=== PATIENT | male | born 1965 | race Caucasian/White ===

== ENCOUNTER 2017-05-14 10:06 | Emergency (ER) | payer BC ==
[2017-05-14 10:11] VITALS: BP 155/85; PULSE 53; TEMP 98.3; BMI 37.6
--- NOTE | 2017-05-14 11:51 | PDOC ---
History of Present Illness - General Chief Complaint: Injury Stated Complaint: ARM PAIN Time Seen by Provider: 05/14/17 11:31 History Source: Patient Exam Limitations: No Limitations - History of Present Illness Initial Comments: 05/14/17 11:47 CHIEF COMPLAINT: Left wrist injury HISTORY OF PRESENT ILLNESS: Patient is a 52-year-old male history of cardiac stents, hypertension and high cholesterol presents for evaluation of left wrist injury states that he tripped and fell on Wednesday, fell onto left wrist developed swelling to area however was able to move wrist without difficulty still with swelling now Patient unable to carry bags and decreased range of motion to left wrist. There is no deformity. No neurosensory deficits. Denies any other injury. MEDS: See medication list ALLERGIES: None REVIEW OF SYSTEMS: GENERAL/CONSTITUTIONAL: Awake alert and oriented HEAD, EYES, EARS, NOSE AND THROAT: No change in vision. No facial edema, no bruising. NO active bleeding. Nares intact. RESPIRATORY: No cough, wheezing, or hemoptysis. CARDIAC: Denies chest pain, no shortness of breathe. MUSCULOSKELETAL: No spinal point tenderness, Good ROM to all four extremities, with pain to left wrist , pain to ulna. NO CVA tenderness. GI/: Denies abdominal pain, no nausea or vomiting, no bloody stool, no Hematuria. SKIN : No erythema or bruising noted. No abrasion or lacerations. Swelling ot the left lateral wrist. NEUROLOGIC: No loss of consciousness, no numbness or tingling. PHYSICAL EXAM: GENERAL: Awake and alert and oriented x3. EARS: The ear canals and tympanic membranes are normal without trauma. No drainage. NECK: No Lower cervical C-spine tenderness, no pain with chin to chest. CHEST: The lungs are clear without crackles, or wheezes. No subcutaneous emphysema. No crepitus. HEART: Heart is regular rhythm, with normal S1 and S2, no murmurs. ABDOMEN: The abdomen is soft and nontender with normal bowel sounds. There is no guarding or rebound. MUSCULOSKELETAL: No spinal point tenderness. No bruising or erythema. Pelvis stable. Equal bilateral grasp pain with range of motion to left wrist EXTREMITIES: Swelling and pain to left lateral wrist, no deformity SKIN: Edema to left lateral wrist no erythema or bruising. No abrasions or lacerations. Past History - Past Medical History Allergies/Adverse Reactions: Allergies Allergy/AdvReac Type Severity Reaction Status Date / Time No Known Allergies Allergy Verified 05/14/17 10:11 Home Medications: Ambulatory Orders Aspirin Coated [Ecotrin -] 81 mg PO DAILY 06/18/12 Losartan 50Mg/Hctz 12.5MG [Hyzaar -] 1 tab PO DAILY 06/18/12 Metoprolol Succinate [Toprol XL -] 50 mg PO DAILY 06/18/12 Prasugrel HCl [Effient] 5 mg PO DAILY 07/26/15 Ranolazine [Ranexa -] 500 mg PO BID #60 tab 08/01/15 Rosuvastatin [Crestor -] 20 mg PO HS #30 tablet 08/01/15 Anemia: No Asthma: No Cancer: No Cardiac Disorders: Yes (CORONARY ARTERIOSCLEROSIS,HEART ATTACK) CVA: No COPD: No Diabetes: No HTN: Yes Hypercholesterolemia: Yes Suicide Attempt (Hx): No - Surgical History Cardiac Surgery: Yes (CARDIAC STENT X2.) Orthopedic Surgery: No (BACK SURGERY) - Psycho/Social/Smoking Cessation Hx Suicidal Ideation: No Smoking Status: No Smoking History: Former smoker Have you smoked in the past 12 months: No Number of Cigarettes Smoked Daily: 0 If you are a former smoker, when did you quit?: 23 YEARS AGO Information on smoking cessation initiated: No Hx Alcohol Use: No Drug/Substance Use Hx: No Substance Use Type: None Hx Substance Use Treatment: No *Physical Exam - Vital Signs Last Vital Signs Temp Pulse Resp BP Pulse Ox 98.3 F 53 L 18 155/85 97 05/14/17 10:08 05/14/17 10:08 05/14/17 10:08 05/14/17 10:08 05/14/17 10:08 ED Treatment Course - RADIOLOGY Radiology Studies Ordered: Category Date Time Status FOREARM- LEFT [RAD] Stat Radiology 05/14/17 11:36 Ordered WRIST W/HAND-LEFT* [RAD] Stat Radiology 05/14/17 11:36 Ordered Medical Decision Making - Medical Decision Making 05/14/17 11:51 A/P: Patient with pain and injury to left wrist sent for x-ray to rule out acute fracture, patient is refusing pain medication at this time. 05/14/17 17:15 X-ray demonstrated posttraumatic changes to distal ulnar, no acute fracture or dislocation based upon pain level Will apply splint, post-splinting neurological checks performed, there is good cap refill, +2 peripheral pulses. Patient states pain is better with immobilization because of level of pain patient will follow-up with orthopedics I discussed the physical exam findings, ancillary test results and final diagnoses with the patient. I answered all of the patient's questions. The patient was satisfied with the care received and felt comfortable with the discharge plan and treatment plan. The patient will call to arrange follow-up and will return to the Emergency Department with any new, persistent or worsening symptoms. 05/14/17 17:19 *DC/Admit/Observation/Transfer Diagnosis at time of Disposition: Wrist injury Qualifiers: Encounter type: initial encounter Laterality: left Qualified Code(s): S69.92XA - Unspecified injury of left wrist, hand and finger(s), initial encounter - Discharge Dispostion Disposition: HOME Condition at time of disposition: Good Admit: No - Referrals Referrals: Matt Tanner MD [Primary Care Provider] - Dru Gay MD [Staff Physician] - - Patient Instructions Additional Instructions: 1. Please return to the emergency department with any redness, swelling, increased pain, or any other concerns. 2. Keep splint on, until official reading call [phone] later this afternoon asked for Jania for official reading of wrist x-ray 3. Please follow up in the office of Dr. Gay within a week if pain persists. 4. No weightbearing 5. Ice and elevate when at rest. - Post Discharge Activity Work/School Note: Back to Work
== END 2017-05-14 13:48 | disposition home or self-care (01) ==
LOC: JERFT 10:06
PROC: 2W3DX1Z Immobilization of Left Lower Arm using Splint (ICD-10-PCS; principal; 2017-05-14)
DX: S69.82XA Other specified injuries of left wrist, hand and finger(s), initial encounter (principal); W19.XXXA Unspecified fall, initial encounter; Y93.89 Activity, other specified; Y92.89 Other specified places as the place of occurrence of the external cause; I25.10 Atherosclerotic heart disease of native coronary artery without angina pectoris; I10 Essential (primary) hypertension; Z95.5 Presence of coronary angioplasty implant and graft; E78.00 Pure hypercholesterolemia, unspecified
CPT/HCPCS: 73090-TC-LT; 73110-TC-LT; 73130-TC-LT; 99281-25

== ENCOUNTER 2018-11-16 09:54 | Inpatient (IN) | payer BC, OTHER ==
--- NOTE | 2018-11-08 09:46 | HP ---
DATE OF ADMISSION: 11/16/2018 DATE OF DICTATION: 10/25/2018 HISTORY: A 53-year-old man admitted for bilateral component separation repair of a complex, chronically incarcerated, ventral hernia with mesh. Patient has had the hernia for quite some time. He did lose almost 30 pounds dieting this year, and the hernia may be more prevalent secondary to his weight loss. Nonetheless, he has had episodes of severe pain associated with the hernia in the supraumbilical midline. No underlying GI, , or respiratory complaints to suggest predisposition to hernia formation. PAST MEDICAL HISTORY: Significant for coronary artery disease and he is status post coronary artery stenting x4, the last stent placed approximately 5 years ago. He also suffers with hypertension and hypercholesterolemia. No history of diabetes , respiratory, renal, or hepatic insufficiency. PAST SURGICAL HISTORY: Significant for failed Lap-Band in the past, which was subsequently removed. He did sustain trauma approximately a year ago, which required urgent knee surgery for a quadriceps tendon avulsion in December 2017. He also does require lumbar fusion with hardware which is still not comp approved but pending. ALLERGIES: None known. REGULAR MEDICATIONS: Statins, losartan, Plavix, metoprolol, Ranexa, Ecotrin. SOCIAL HISTORY: Negative tobacco but did smoke remotely. Negative alcohol. Patient states he did drink remotely as well. FAMILY HISTORY: Mother history of heart disease. Siblings: One recently with brain neoplasia. REVIEW OF SYSTEMS: Otherwise nil. PHYSICAL EXAMINATION: General: Patient appears his stated age. Vital Signs: 268 pounds/5 feet 11 inches (BMI 37.4). Abdomen: Obese, soft, nontender. A chronically incarcerated, upper midline hernia identified amidst a large diastasis recti. IMPRESSION: Complex, chronically incarcerated ventral hernia. Large diastasis recti. PLAN: Patient to undergo bilateral component separation repair of complex, chronically incarcerated ventral hernia with mesh. Patient has been advised to lose as much weight preoperatively as possible. He will be giving that some consideration as he already has lost 30 pounds this year. Indications, alternatives, possible complications reviewed. Consent obtained. Issues that relate to placement of a permanent mesh at the time of surgery reviewed with patient. Those risks, which include, but are not limited to, infection, rejection, migration, and neuritides explained. Consent obtained. Patient to be seen preoperatively by his PMD and fashion intern. Please refer to those notes for those medical details. Violetta PRESCOTT/[id number] cc: Matt Tanner MD MTDD
[2018-11-15 14:54] VITALS: BMI 37.3
[2018-11-16] MEDS ORDERED: ceFAZolin SODIUM 1 GM VIAL ONE ×2 (10:38→13:58)
[2018-11-16] MEDS ORDERED: TAMSULOSIN HCL 0.4 MG CAP ONE (10:38)
[2018-11-16] MEDS ORDERED: TAMSULOSIN HCL 0.4 MG CAP PO ONE (10:50)
[2018-11-16] MEDS ORDERED: DEXAMETHASONE SOD PHOSPHATE/PF 10 MG/ML SDV ONE (11:48)
[2018-11-16] MEDS ORDERED: BUPIVACAINE HCL/PF 0.5% (5MG/ML) 10 ML VIAL ONE (11:49)
[2018-11-16] MEDS ORDERED: MIDAZOLAM HCL 2 MG/2 ML SINGLE DOSE VIAL ONE (11:50)
[2018-11-16] MEDS ORDERED: IBUPROFEN 800 MG/8 ML IJ IVPB PRN (13:40)
[2018-11-16] MEDS ORDERED: fentaNYL CITRATE 250 MCG/5 ML VIAL ONE (13:48)
[2018-11-16] MEDS ORDERED: SUCCINYLCHOLINE CHLORIDE 200 MG/10 ML VIAL ONE (13:48)
[2018-11-16] MEDS ORDERED: ROCURONIUM BROMIDE 50 MG/5 ML VIAL ONE ×2 (13:48→14:10)
[2018-11-16] MEDS ORDERED: PROPOFOL 20 ML ONE ×2 (13:48)
[2018-11-16] MEDS ORDERED: LIDOCAINE HCL/PF 2% SDV 5ML VIAL ONE (13:58)
[2018-11-16] MEDS ORDERED: ceFAZolin SODIUM 1 GM VIAL IVPB ONE (14:04)
[2018-11-16] MEDS ORDERED: ePHEDrine SULFATE 50 MG/1 ML AMPULE ONE (14:13)
[2018-11-16] MEDS ORDERED: NEOSTIGMINE METHYLSULFATE 0.5 MG/ML - 10 ML MDV ONE ×2 (15:05→15:17)
[2018-11-16] MEDS ORDERED: GLYCOPYRROLATE 0.2 MG/1 ML VIAL ONE ×2 (15:05→15:18)
[2018-11-16] MEDS ORDERED: ONDANSETRON 4 MG/2 ML VIAL IVPUSH PRN (15:49)
[2018-11-16] MEDS ORDERED: LACTATED RINGERS SOLUTION 1,000 ML IV SCH (16:00)
[2018-11-16] MEDS: D5-1/2NS+20 MEQ KCL - 20 MEQ/1,000 ML INFUS.BAG IV SCH ×2 (18:20→19:01)
[2018-11-16] MEDS: MORPHINE SULFATE 8 MG/ML VIAL IVPB PRN (19:00)
[2018-11-16] MEDS: HYDROCHLOROTHIAZIDE 12.5 MG CAPSULE (FP) PO SCH (19:00)
[2018-11-16] MEDS: LOSARTAN POTASSIUM 50 MG TABLET (FP) PO SCH (19:00)
[2018-11-16] MEDS ORDERED: ROSUVASTATIN CA 10 MG TABLET (FP) ONE (21:24)
[2018-11-16] MEDS ORDERED: LOSARTAN 50MG/HCTZ 12.5MG 1 TAB (FP) PO SCH (22:00)
[2018-11-16] MEDS: RANOLAZINE E.R. 500 MG TABLET (FP) PO SCH (22:03)
[2018-11-16] MEDS: oxyCODONE HCL 5 MG TABLET PO PRN (22:04)
[2018-11-16] MEDS: ROSUVASTATIN CA 20 MG TABLET (FP) PO SCH (22:04)
[2018-11-17] MEDS: MORPHINE SULFATE 8 MG/ML VIAL IVPB PRN (02:55)
[2018-11-17] MEDS: D5-1/2NS+20 MEQ KCL - 20 MEQ/1,000 ML INFUS.BAG IV SCH (04:45)
[2018-11-17] MEDS: HYDROCHLOROTHIAZIDE 12.5 MG CAPSULE (FP) PO SCH ×2 (06:21→18:04)
[2018-11-17] MEDS: LOSARTAN POTASSIUM 50 MG TABLET (FP) PO SCH ×2 (06:22→18:04)
--- NOTE | 2018-11-17 08:02 | OP ---
DATE OF OPERATION: 11/16/2018 PREOPERATIVE DIAGNOSIS: Incarcerated, complex ventral hernia. POSTOPERATIVE DIAGNOSIS: Incarcerated, complex ventral hernia. PROCEDURE: Open bilateral-component separation repair of complex, incarcerated ventral hernia with mesh/partial omentectomy. OPERATING SURGEON: Ciro Hernandez MD FORMAT PROOFREADER: Ochoa Garrison MD ANESTHESIA: Bacilio Christian MD (general) HISTORY: A 53-year-old man who presents for repair of a complex, chronically incarcerated ventral hernia involving the upper midline. Indications, alternatives, and possible complications reviewed. Consent obtained. DESCRIPTION OF PROCEDURE: With the patient in the supine position and after general anesthesia, the abdomen was prepped and draped in sterile fashion using chlorhexidine. A midline incision was made directly over the incarcerated hernia in the upper midline, and the incision was carried out inferiorly just beyond the umbilicus. The subcutaneous tissues were using the electrocautery. The obvious hernia was encountered in the upper midline including to the level of the fascial ring. Along the fascial midline, there were several other smaller hernia defects which contained incarcerated fat. Additionally, there was a defect at the base of the umbilicus , which could not be appreciated clinically. The larger hernia sac was opened. Portion of the sac and omentum were excised and sent as specimen. The midline was then divided from the level of the upper large defect, encompassing the 2 smaller defects in the midline, as well as the umbilicus. First, directing our attention the right side, the right posterior rectus sheath was from the overlying right rectus muscle fibers. The retrorectus space on the right side was developed using sharp cautery dissection, moving in the inferolateral and superior direction, ultimately arriving at the junction of the rectus with the oblique and transversus musculature. The oblique musculature was then from the underlying transversus musculature, creating a plane which was created as a continuous space of the right retrorectus dissection. Again, the dissection was carried out further inferiorly, laterally, and superiorly. Now directing our attention to the left side, the left posterior sheath was from the left rectus muscle fibers, creating the left retrorectus space. Again , this was carried out inferiorly, laterally, and superior to the level of the junction of the rectus with the oblique and transversus musculature. Again, the left oblique musculature was from the underlying left transversus muscle. The retrorectus space was extended into this interspace, and the dissection again was carried out further inferiorly, laterally, and superiorly. The posterior midline was then reconstructed, approximating the tissues in the midline using a continued 3-0 Maxon suture. Composite mesh was made at the table while using a piece of 15 x 15 ProGrip mesh which was sutured to a similar-size piece of OviTex mesh using interrupted 3-0 Vicryl sutures circumferentially. After the mesh was soaked, it was placed in the retrorectus space with the OviTex side down and the ProGrip side up. The mesh was fashioned to fill the space. It was then tacked to the overlying musculature circumferentially with an AbsorbaTack and counter-palpation. The wound was irrigated, and adequate hemostasis ensured. The anterior fascia was then closed using number 1 PDS suture material, beginning on each end of the wound with the suture tied at the level of the wound midpoint. The subcutaneous tissues were irrigated and irrigant retrieved. Adequate hemostasis ensured. The undersurface of the skin at the umbilicus was tacked to the underlying fascia to create the usual inward appearance of the umbilicus. Given the capacious subcutaneous space, a Rickie-Street drain was placed in the space and exited through a separate stab wound at the level of the left lower abdominal wall, where it was tacked to the skin with 2-0 silk suture material. The skin edges were ultimately approximated using metallic clips. Dermabond applied. Procedure terminated. Needle, sponge, and instrument count correct. ESTIMATED BLOOD LOSS: Minimal. SPECIMEN: Hernia sac and portion of omentum. DRAINS: One VIRI. IMPLANT: Mesh. Patient tolerated the procedure, and the procedure was terminated. Violetta [id number] MTDD
[2018-11-17] MEDS: RANOLAZINE E.R. 500 MG TABLET (FP) PO SCH ×2 (10:14→21:13)
[2018-11-17] MEDS: PANTOPRAZOLE SODIUM 40 MG VIAL IVPUSH SCH (10:14)
[2018-11-17] MEDS: ENOXAPARIN NA (PORCINE) 40 MG/0.4 ML DISP.SYRIN SQ SCH (10:14)
[2018-11-17] MEDS: ASPIRIN COATED 81 MG TABLET.EC PO SCH (10:14)
[2018-11-17] MEDS: amLODIPine BESYLATE 5 MG TABLET (FP) PO SCH (10:14)
[2018-11-17] MEDS: oxyCODONE HCL 5 MG TABLET PO PRN ×3 (12:31→22:30)
[2018-11-17] MEDS: TAMSULOSIN HCL 0.4 MG CAP PO SCH (18:03)
[2018-11-17] MEDS ORDERED: ROSUVASTATIN CA 10 MG TABLET (FP) ONE (21:06)
[2018-11-17] MEDS ORDERED: PT OWN MED DRAWER 7, Y5N ONE (21:15)
[2018-11-17] MEDS: ROSUVASTATIN CA 20 MG TABLET (FP) PO SCH (21:16)
[2018-11-18] MEDS: MORPHINE SULFATE 8 MG/ML VIAL IVPB PRN (05:03)
[2018-11-18] MEDS: HYDROCHLOROTHIAZIDE 12.5 MG CAPSULE (FP) PO SCH ×2 (06:19→17:56)
[2018-11-18] MEDS: LOSARTAN POTASSIUM 50 MG TABLET (FP) PO SCH ×2 (06:19→17:56)
[2018-11-18] MEDS: ENOXAPARIN NA (PORCINE) 40 MG/0.4 ML DISP.SYRIN SQ SCH (10:48)
[2018-11-18] MEDS: PANTOPRAZOLE SODIUM 40 MG VIAL IVPUSH SCH (10:55)
[2018-11-18] MEDS: TAMSULOSIN HCL 0.4 MG CAP PO SCH (10:55)
[2018-11-18] MEDS: amLODIPine BESYLATE 5 MG TABLET (FP) PO SCH (10:55)
[2018-11-18] MEDS: RANOLAZINE E.R. 500 MG TABLET (FP) PO SCH (10:55)
[2018-11-18] MEDS: ASPIRIN COATED 81 MG TABLET.EC PO SCH (10:55)
[2018-11-18 17:15] VITALS: BP 125/79; PULSE 58; TEMP 98.2
[2018-11-18] MEDS: D5-1/2NS+20 MEQ KCL - 20 MEQ/1,000 ML INFUS.BAG IV SCH (17:56)
--- NOTE | 2018-11-19 07:16 | DS ---
DATE OF ADMISSION: 11/16/2018 DATE OF DISCHARGE: 11/18/2018 ADMITTING DIAGNOSIS: Incisional hernia. DISCHARGE DIAGNOSIS: Incisional hernia. BRIEF HISTORY: This is a 53-year-old male who presented to [facility] for surgical management of an incisional hernia. He underwent repair of this hernia utilizing component separation, myofascial release, mesh and abdominal wall reconstruction. Please reference Dr. Ciro Hernandez's operative report from November 16. Postoperatively he developed urinary retention and postoperative pain. He required a Strauss catheter to be placed on the evening of November 17 which was removed the morning of November 18. He is currently ambulating. He is tolerating a liquid diet. He is passing gas. If he is able to void he is expected to be discharged with his Rickie-Street drain. He is okay to walk, okay to climb stairs, though not lift more than 20 pounds. He will empty his J-P drain daily and record the amount or sooner if needed. He will follow with Dr. Hernandez in approximately 1 to 2 weeks to be evaluated for drain removal. If the patient is unable to void then he will go home with a Strauss catheter and be evaluated as an outpatient by a urologist. He does state that he gets up multiple times at night normally to go to the bathroom and he likely has benign prostatic hypertrophy. He will resume all of his home medications including Norvasc, aspirin, Plavix, losartan, metoprolol, Ranexa and Crestor. He has a new prescription for Percocet which he will take as needed for pain. DO DERRICK BOLIVAR/[id number]
--- NOTE | 2018-11-20 08:48 | PATH ---
Surgical Pathology Report Patient Name: JACQUELINE OLMOS Med. Rec. #: [id number] /Age/Gender: 1965 (Age: 53) / M Account: [id number] Location: [facility] MED/SURG Taken: 11/16/2018 Received: 11/17/2018 Reported: 11/20/2018 Physicians: Ciro Hernandez M.D. Specimen(s) Received PORTION OF HERNIA SAC AND OMENTUM Clinical History Other and unspecified ventral hernia with obstruction Final Diagnosis PORTION OF HERNIA SAC AND OMENTUM, EXCISION: BENIGN FIBROUS AND MATURE ADIPOSE TISSUE. Electronically Signed Bhavesh Palacios M.D. Gross Description Received in formalin labeled "portion of hernia sac and omentum," is a 5.5 x 3.0 x 1.7 cm aggregate of multiple lua-lara portions of fibromembranous tissue with attached fat, consistent with a hernia sac. [employer]eting Supervisor sections are submitted in one cassette. 11/17/2018 [facility]/17/[facility]
== END 2018-11-18 20:15 | disposition home or self-care (01) | DRG 641 ==
LOC: JASUSAT 09:54 → JASU-SURG 09:54 → JSAMEDAYSX 13:38 → J8W 18:33
PROVIDERS: ADMIT Surgery; ATTEND Surgery
DX: E87.1 Hypo-osmolality and hyponatremia (principal); I25.10 Atherosclerotic heart disease of native coronary artery without angina pectoris; I25.2 Old myocardial infarction; I10 Essential (primary) hypertension; E78.5 Hyperlipidemia, unspecified; Z98.61 Coronary angioplasty status; R33.9 Retention of urine, unspecified; K59.00 Constipation, unspecified; E83.42 Hypomagnesemia; Z68.37 Body mass index [BMI] 37.0-37.9, adult; N99.89 Other postprocedural complications and disorders of genitourinary system; Y83.8 Other surgical procedures as the cause of abnormal reaction of the patient, or of later complication, without mention of misadventure at the time of the procedure; R33.8 Other retention of urine; E66.01 Morbid (severe) obesity due to excess calories; T50.2X5A Adverse effect of carbonic-anhydrase inhibitors, benzothiadiazides and other diuretics, initial encounter; I95.9 Hypotension, unspecified
CPT/HCPCS: 88302-TC

== ENCOUNTER 2018-11-19 05:59 | Inpatient (IN) | payer BC, OTHER ==
[2018-11-19] MEDS ORDERED: ASPIRIN 81 MG CHEWABLE TABLETS PO ONE (06:07)
[2018-11-19 06:56] LABS: BASO % 0.2 % (0-2.0); EOS % 1.3 % (0-4.5); HEMATOCRIT 39.3 % (35.4-49); HEMOGLOBIN 13.4 GM/dL (11.7-16.9); LYMPH % 11.8 % (8-40); MCH 29.6 pg (25.7-33.7); MCHC 34.1 g/dl (32.0-35.9); MEAN CELL VOLUME 86.7 fl (80-96); MEAN PLT VOLUME 7.4 fl (7.5-11.1); MONO % 9.6 % (3.8-10.2); NEUT % 77.1 % (42.8-82.8); PLATELET COUNT 240 K/MM3 (134-434); RBC 4.53 M/mm3 (4.00-5.60); RDW 13.2 % (11.9-15.9); WHITE BLOOD COUNT 11.2 K/mm3 (4.0-10.0)
--- NOTE | 2018-11-19 07:09 | PDOC ---
History of Present Illness - General Chief Complaint: Chest Pain Stated Complaint: CHEST PAIN History Source: Patient Exam Limitations: No Limitations - History of Present Illness Initial Comments: 11/19/18 11:26 53 yo M with hx of CAD s/p x4 stents (most recent 5 years ago; 2x SC 2004, 2009) , HTN, and HLD presents to the emergency department after recent discharge for repair of complex incarcerated ventral hernia yesterday with chest pain that awoke him from sleep at 3am today. Per the patient, he states the pain began in the center left chest wall, without radiation, described as pressure, rated at 8 /10, worsens with laying down, and has the following associative symptoms: SOB, nausea, and chills. Denies vomiting. Per the patient, it is currently a 6/10. Denies the following: fevers, visual changes, lightheadedness, ears/nose/throat pain, abdominal pain, dysuria, hematuria, diarrhea, and hematochezia. No recent travels, but has been on lovenox while at the hospital. Pmhx: Refer to above Shx: lap band Meds: plavix, statin, losartan, metoprolol, aspirin, ranexa Allergies: NKDA Social: Denies tobacco, alcohol, and substance abuse. Past History - Past Medical History Allergies/Adverse Reactions: Allergies Allergy/AdvReac Type Severity Reaction Status Date / Time No Known Allergies Allergy Verified 11/19/18 06:23 Home Medications: Ambulatory Orders Aspirin Coated [Ecotrin -] 162 mg PO DAILY 06/18/12 Losartan 50Mg/Hctz 12.5MG [Hyzaar -] 1 tab PO BID 06/18/12 Metoprolol Succinate [Toprol XL -] 50 mg PO BID 06/18/12 Ranolazine [Ranexa -] 500 mg PO BID #60 tab 08/01/15 Rosuvastatin [Crestor -] 20 mg PO HS #30 tablet 08/01/15 Clopidogrel Bisulfate [Plavix] 75 mg PO DAILY 11/15/18 Amlodipine Besylate [Norvasc -] 5 mg PO DAILY 11/16/18 Oxycodone HCl/Acetaminophen [Percocet 5-325 mg Tablet] 1 tab PO Q4H PRN #42 tablet MDD 6 11/16/18 Tamsulosin HCl [Flomax] 0.4 mg PO HS #7 cap.er.24h 11/18/18 Anemia: No Asthma: No Cancer: No Cardiac Disorders: Yes (CORONARY ARTERIOSCLEROSIS,HEART ATTACK) CVA: No COPD: No CHF: No (2009) Dementia: No Diabetes: No GI Disorders: No Disorders: No HTN: Yes Hypercholesterolemia: Yes Liver Disease: No Seizures: No Thyroid Disease: No - Surgical History Cardiac Surgery: Yes (CARDIAC STENT x4 2009) Neurologic Surgery: Yes (back sx) Orthopedic Surgery: No (BACK SURGERY knee sx) - Suicide/Smoking/Psychosocial Hx Smoking Status: No Smoking History: Never smoked Have you smoked in the past 12 months: No Number of Cigarettes Smoked Daily: 0 If you are a former smoker, when did you quit?: 25 YEARS AGO Information on smoking cessation initiated: No Hx Alcohol Use: No Drug/Substance Use Hx: No Substance Use Type: None Hx Substance Use Treatment: No *Physical Exam - Vital Signs Last Vital Signs Temp Pulse Resp BP Pulse Ox 98.5 F 62 18 142/87 93 L 11/19/18 06:17 11/19/18 06:17 11/19/18 06:17 11/19/18 06:17 11/19/18 06:17 Moderate Sedation - Procedure Monitoring Vital Signs: Procedure Monitoring Vital Signs Temperature 98.5 F 11/19/18 06:17 Pulse Rate 62 11/19/18 06:17 Respiratory Rate 18 11/19/18 06:17 Blood Pressure 142/87 11/19/18 06:17 O2 Sat by Pulse Oximetry (%) 93 L 11/19/18 06:17 Heart Score/ECG Review - History History: Moderately suspicious ED Treatment Course - LABORATORY CBC & Chemistry Diagram: 11/19/18 06:46 11/19/18 06:46 - ADDITIONAL ORDERS Additional order review: 11/19/18 06:46 RBC 4.53 MCV 86.7 MCHC 34.1 RDW 13.2 MPV 7.4 L Neutrophils % 77.1 D Lymphocytes % 11.8 D Monocytes % 9.6 Eosinophils % 1.3 Basophils % 0.2 *DC/Admit/Observation/Transfer - Referrals Referrals: Matt Tanner MD [Primary Care Provider] - - Patient Instructions - Post Discharge Activity
[2018-11-19 07:23] LABS: ALBUMIN 3.3 g/dl (3.4-5.0); ALK PHOS 69 U/L (45-117); ANION GAP 10 MMOL/L (8-16); BILIRUBIN,TOTAL 0.7 mg/dL (0.2-1); BLOOD UREA NITROGEN 12 mg/dL (7-18); CALCIUM 8.3 mg/dL (8.5-10.1); CHLORIDE 77 mmol/L (98-107); CO2 33 mmol/L (21-32); GLUCOSE,RANDOM 113 mg/dL (74-106); MAGNESIUM 1.6 mg/dL (1.8-2.4); POTASSIUM 3.7 mmol/L (3.5-5.1); SGOT/AST 25 U/L (15-37); SGPT/ALT 25 U/L (13-61); SODIUM 121 mmol/L (136-145); TOT PROT 5.9 g/dl (6.4-8.2)
[2018-11-19 07:25] LABS: INR 1.08 (0.83-1.09); PROTHROMBIN TIME (PATIENT) 12.8 SEC (9.7-13.0)
[2018-11-19] MEDS ORDERED: ASPIRIN 81 MG CHEWABLE TABLETS ONE (07:49)
[2018-11-19 07:54] LABS: CREATININE 0.7 mg/dL (0.55-1.3)
--- NOTE | 2018-11-19 08:15 | PDOC ---
Attending Attestation - Resident Resident Name: Donald Kirk - ED Attending Attestation I have performed the following: I have examined & evaluated the patient, The case was reviewed & discussed with the resident, I agree w/resident's findings & plan, Exceptions are as noted - HPI HPI: 11/19/18 08:16 53 M with h/o hypertension, hyperlipidemia, CAD/LA s/p multiple stents, recent ventral hernia repair POD 3, presenting to ED with chest pain. Pt states that he awoke at 3am with midsternal chest pressure and SOB. Pt also reports chills. Endorses dry heaves without vomiting. Denies any significant abdominal pain but notes some bloating. Has not had BM since surgery but states he is passing gas. Pt states the pain is similar to his previous MIs. Denies any leg swelling. Was receiving lovenox shots in hospital. Denies orthopnea. - Physicial Exam PE: 11/19/18 08:22 "GENERAL: Awake, alert, and fully oriented, in no acute distress. HEAD: No signs of trauma EYES: PERRLA, EOMI, sclera anicteric, conjunctiva clear ENT: Auricles normal inspection, hearing grossly normal, nares patent, oropharynx clear without exudates. Moist mucosa NECK: Nontender, no stepoffs, Normal ROM, supple, no lymphadenopathy, JVD, or masses LUNGS: Breath sounds equal, clear to auscultation bilaterally. No wheezes, and no crackles HEART: Regular rate and rhythm, normal S1 and S2, no murmurs, rubs or gallops ABDOMEN: + drain in place, Soft, nontender, normoactive bowel sounds. No guarding, no rebound. No masses EXTREMITIES: Normal range of motion, no edema. No clubbing or cyanosis. No cords, erythema, or tenderness NEUROLOGICAL: Cranial nerves II through XII intact. 5/5 strength and sensation in all extremities, Normal speech, normal gait, normal cerebellar function SKIN: Warm, Dry, normal turgor, no rashes or lesions noted. - Medical Decision Making 11/19/18 08:24 53 M with chest pain and SOB. EKG with no ischemic changes but will need ACS r/ o given h/o LA. Pt also recently post-op, will need to r/o PNA vs PE. Pt with no abdominal pain but reports mild distention and dry heaving. Otherwise passing flatus. - Labs, trop - CTA chest - XR abd to r/o obstruction Pt's labs notable for Na 121. Pt endorses drinking "a lot of water" leading up to surgery and in the few days since his operation in an attempt to "clean out his system". Denies POP, confusion. Pt with no neuro deficits. No h/o seizures. CTA chest negative XR unremarkable Pt admitted for further work up of CP/SOB.
[2018-11-19 10:42] LABS: URINE APPEARANCE CLEAR; URINE BILIRUBIN NEGATIVE (<2.0 mg/dL); URINE COLOR LTYELLOW; URINE GLUCOSE (UA) NEGATIVE (NEGATIVE); URINE KETONE TRACE (NEGATIVE); URINE LEUK ESTERASE TRACE (NEGATIVE); URINE NITRITE NEGATIVE (NEGATIVE); URINE PROTEIN NEGATIVE (NEGATIVE); URINE UROBILINOGEN NEGATIVE mg/dL (0.2-1.0)
[2018-11-19] MEDS ORDERED: ACETAMINOPHEN 1000 MG/100 ML VIAL (NON FORMULARY) IVPB ONE (13:38)
--- NOTE | 2018-11-19 13:53 | HP ---
CHIEF COMPLAINT: dyspnea PCP: Dr. Tanner Cardio: Dr. Stein Surgery: Dr. Hernandez, Dr. Montes HISTORY OF PRESENT ILLNESS: 53 yr old man with HTN, CAD s/p PCI, hx of lap band, POD#3 s/p ventral hernia repair presents with dyspnea and chest pressure since 3am today. Pt was discharged yesterday afternoon. The chest pressure is not painful and improves when leaning forward. the shortness of breath was sudden and associated with chest pressure, felt like "he couldn't catch his breath," worse when trying to walk, without any difficulty laying flat. says he had no complications while admitted, was ambulating and eating well during hospital stay. c/o continuous belching and 1 episode of chills last night. He normally drinks 3 glasses of water per day and has not increased that amount his operation. he has been on a liquid diet. recently started on norvasc 5mg on Wednesday by cardio. denies cough, calf edema or tenderness, fevers, abdominal pain, headache, vision changes, mental status changes, vomiting. He was discharged with pedraza and a pigtail in place. He has not had a bm post- operatively but has been passing gas, was on narcotics for pain relief and attributes it to SE. as per dc summary pt underwent repair of an incisonal hernia utilizing component separation, myofascial release, mesh, and abdominal wall reconstruction. He developed urinary retention requiring pedraza placement. He was discharged with his [place] drain and is to follow in 1-2wks to be evaluated for drain removal. all home medications were restarted. 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 Smoking: former, quit 20yrs ago Alcohol: denies Drugs: denies Family History: sister with brain cancer dx'd age 59, HTN in mother and father Allergies No Known Allergies Allergy (Verified 11/19/18 06:23) HOME MEDICATIONS: Home Medications Medication Instructions Recorded Aspirin Coated [Ecotrin -] 162 mg PO DAILY 06/18/12 Losartan 50Mg/Hctz 12.5MG [Hyzaar 1 tab PO BID 06/18/12 -] Metoprolol Succinate [Toprol XL -] 50 mg PO BID 06/18/12 Ranolazine [Ranexa -] 500 mg PO BID #60 tab 08/01/15 Rosuvastatin [Crestor -] 20 mg PO HS #30 tablet 08/01/15 Clopidogrel Bisulfate [Plavix] 75 mg PO DAILY 11/15/18 Amlodipine Besylate [Norvasc -] 5 mg PO DAILY 11/16/18 confirmed medications with pharmacy: metformin 500mg ER BID last fill 07/23/2018 for 30 days, flomax 0.4mg daily for 7 days not currently on it, rx'd yesterday dr. cary percocet 5/325 1 q4hr, nov 16 dr. iglesias norvasc 5mg daily started 11/12/2018 losartan with HCTZ 50/12.5 qd daily plavix 75mg daily crestor 20mg metoprolol succ 50mg BID daily ranexa 500mg BID REVIEW OF SYSTEMS CONSTITUTIONAL: Absent: fever, chills, diaphoresis, generalized weakness, malaise, loss of appetite, weight change HEENT: Absent: rhinorrhea, nasal congestion, throat pain, throat swelling, difficulty swallowing, mouth swelling, eye pain, visual changes CARDIOVASCULAR: Absent: chest pain, syncope, palpitations, irregular heart rate, lightheadedness , peripheral edema RESPIRATORY: Present:shortness of breath, Absent: cough, dyspnea with exertion, orthopnea, wheezing, stridor, hemoptysis GASTROINTESTINAL: Present: constipation Absent: abdominal pain, abdominal distension, nausea, vomiting, diarrhea, melena, hematochezia GENITOURINARY: Absent: dysuria, frequency, urgency, hesitancy, hematuria, flank pain, genital pain MUSCULOSKELETAL: Absent: myalgia, arthralgia, joint swelling, back pain, neck pain SKIN: Absent: rash, itching, pallor HEMATOLOGIC/IMMUNOLOGIC: Absent: easy bleeding, easy bruising, lymphadenopathy, frequent infections ENDOCRINE: Absent: unexplained weight gain, unexplained weight loss, heat intolerance, cold intolerance NEUROLOGIC: Absent: headache, focal weakness or paresthesias, dizziness, unsteady gait, seizure, mental status changes, bladder or bowel incontinence PHYSICAL EXAMINATION Vital Signs - 24 hr 11/19/18 11/19/18 11/19/18 06:17 10:30 13:47 Temperature 98.5 F Pulse Rate 62 Pulse Rate [ 63 59 L Radial] Respiratory 18 18 17 Rate Blood Pressure 142/87 Blood Pressure 128/69 124/89 [Right Arm] O2 Sat by Pulse 93 L 98 100 Oximetry (%) GENERAL: Awake, alert, and fully oriented, in no acute distress. HEAD: Normal with no signs of trauma. EYES: Pupils equal, round and reactive to light, extraocular movements intact, sclera anicteric, conjunctiva clear. No lid lag. EARS, NOSE, THROAT: Ears normal, nares patent, oropharynx clear without exudates. Moist mucous membranes. no sinus tenderness. NECK: Normal range of motion, supple without lymphadenopathy, JVD, or masses. no carotid bruits LUNGS: Breath sounds equal, clear to auscultation bilaterally. No wheezes, and no crackles. No accessory muscle use. HEART: Regular rate and rhythm, normal S1 and S2 without murmur, rub or gallop. ABDOMEN: Soft, nontender, obese, +distended, normoactive bowel sounds, no guarding, no rebound, no masses. periumbilical claire without erythema, discharge or tenderness. VIRI drain in LLQ skin intact without erythema or discharge, draining sangious fluid. purpura in RLQ from AC shots MUSCULOSKELETAL: Normal range of motion at all joints. No bony deformities or tenderness. No CVA tenderness. UPPER EXTREMITIES: 2+ radial pulses, warm, well-perfused. No cyanosis. No clubbing. No peripheral edema. LOWER EXTREMITIES: 2+ pulses, warm, well-perfused. No calf tenderness. No peripheral edema. NEUROLOGICAL: Cranial nerves II-XII intact. Normal speech. Normal gait. PSYCHIATRIC: Cooperative. Good eye contact. Appropriate mood and affect. SKIN: Warm, dry, normal turgor, no rashes or lesions noted, normal capillary refill. Laboratory Results - last 24 hr 11/19/18 11/19/18 11/19/18 06:46 06:46 06:46 WBC 11.2 H RBC 4.53 Hgb 13.4 Hct 39.3 MCV 86.7 MCH 29.6 MCHC 34.1 RDW 13.2 Plt Count 240 D MPV 7.4 L Absolute Neuts (auto) 8.6 H Neutrophils % 77.1 D Lymphocytes % 11.8 D Monocytes % 9.6 Eosinophils % 1.3 Basophils % 0.2 Nucleated RBC % 0 PT with INR 12.80 INR 1.08 Sodium 121 L Potassium 3.7 Chloride 77 L Carbon Dioxide 33 H Anion Gap 10 BUN 12 Creatinine 0.7 Creat Clearance w eGFR > 60 Random Glucose 113 H Calcium 8.3 L Magnesium 1.6 L Total Bilirubin 0.7 AST 25 ALT 25 Alkaline Phosphatase 69 Creatine Kinase 216 Creatine Kinase Index 2.2 CK-MB (CK-2) 4.9 H Troponin I 0.03 B-Natriuretic Peptide 419.0 H Total Protein 5.9 L Albumin 3.3 L Urine Color Urine Appearance Urine pH Ur Specific [place] Urine Protein Urine Glucose (UA) Urine Ketones Urine Blood Urine Nitrite Urine Bilirubin Urine Urobilinogen Ur Leukocyte Esterase Urine WBC (Auto) Urine RBC (Auto) Ur Random Sodium Urine Creatinine 11/19/18 11/19/18 09:15 09:15 WBC RBC Hgb Hct MCV MCH MCHC RDW Plt Count MPV Absolute Neuts (auto) Neutrophils % Lymphocytes % Monocytes % Eosinophils % Basophils % Nucleated RBC % PT with INR INR Sodium Potassium Chloride Carbon Dioxide Anion Gap BUN Creatinine Creat Clearance w eGFR Random Glucose Calcium Magnesium Total Bilirubin AST ALT Alkaline Phosphatase Creatine Kinase Creatine Kinase Index CK-MB (CK-2) Troponin I B-Natriuretic Peptide Total Protein Albumin Urine Color Ltyellow Urine Appearance Clear Urine pH 7.0 Ur Specific [place] 1.049 H Urine Protein Negative Urine Glucose (UA) Negative Urine Ketones Trace H Urine Blood 3+ H Urine Nitrite Negative Urine Bilirubin Negative Urine Urobilinogen Negative Ur Leukocyte Esterase Trace Urine WBC (Auto) 4 Urine RBC (Auto) 440 Ur Random Sodium 106 Urine Creatinine 66.0 H ASSESSMENT/PLAN: 53 yr old man with HTN, CAD, POD#3 of ventral hernia repair presents with dyspnea found to have hyponatermia #hyponatremia - hypotonic hyponatremia with normal urine sodium and normal urine osm in euvolemic appearing patient. possibly due to increased fluid intake since post-op vs diuretic SE. will hold losartan/hctz, fluid restrict and repeat labs. possibly this could be causing his dyspnea, EKG without ischemic changes, will trend trops to r/o cardiac cause, CTA unrevealing for PE. - check AM cortisol level to r/o SIADH, check TSH in the am to evaluate for hypothyroidism - if it continues to trend down will require further investigation - currently pt is alert/oriented without neurological deficits, defer 3% saline for now #Urine retention with pedraza - leave pedraza for now to monitor fluid output closely - if hyponetremia improved, may remove pedraza to check for retention or as previously DC planned to initiate flomax and outpatient urology f/u #HTN - continue norvasc 5mg and metorprol suc 50mg BID - hold hyzaar #POD3 for ventral hernia repair - monitor VIRI drainage - has not required pain medications so far, if requests, he was on percocet 5mg/ 325 #constipation - colace + senna daily #Hypomag - repleted with 1gm IV #obesity - pt s/p lap band, and actively has been attempting to lose weight - continue diet and exercise counseling #DVT: heparin BID #Diet: fluid restrict 1L/day, regular diet as tolerated #activity, as tolerated FULL CODE declined HIV testing Visit type - Emergency Visit Emergency Visit: Yes ED Registration Date: 11/19/18 Care time: The patient presented to the Emergency Department on the above date and was hospitalized for further evaluation of their emergent condition. - New Patient This patient is new to me today: Yes Date on this admission: 11/19/18 - Critical Care Critical Care patient: No
[2018-11-19] MEDS ORDERED: MAGNESIUM SULF 50% (8.12 MEQ/2 ML-1 GM VIAL) IVPB ONE (14:00)
[2018-11-19] MEDS ORDERED: ACETAMINOPHEN INJECTION 100 ML IVPB ONE (14:29)
[2018-11-19] MEDS ORDERED: MAGNESIUM SULF 50% (8.12 MEQ/2 ML-1 GM VIAL) ONE (14:29)
--- NOTE | 2018-11-19 15:44 | EKG ---
Test Reason : Blood Pressure : / mmHG Vent. Rate : 060 BPM Atrial Rate : 060 BPM P-R Int : 154 ms QRS Dur : 098 ms QT Int : 448 ms P-R-T Axes : 030 057 043 degrees QTc Int : 448 ms NORMAL SINUS RHYTHM NORMAL ECG WHEN COMPARED WITH ECG OF 30-JUL-2015 19:35, NONSPECIFIC T WAVE ABNORMALITY NO LONGER EVIDENT IN INFERIOR LEADS NONSPECIFIC T WAVE ABNORMALITY NO LONGER EVIDENT IN LATERAL LEADS Confirmed by CRISTIANE GARCIA MD ([id number]) on 11/19/2018 3:44:05 PM Referred By: Confirmed By:CRISTIANE GARCIA MD
--- NOTE | 2018-11-19 17:43 | PN ---
Teaching Attending Note Name of Resident: Will De Dios ATTENDING PHYSICIAN STATEMENT I saw and evaluated the patient. I reviewed the resident's note and discussed the case with the resident. I agree with the resident's findings and plan as documented. SUBJECTIVE: This is a 53 year old man with a history of HTN, CAD with stents, morbid obesity, lap band, recent repair of incarcerated complex ventral hernia 11/16 who comes to the ED complaining of chest pressure and SOB. He was discharged yesterday. This morning at 3 am he developed chest pressure and SOB which was worse with ambulation and better when leaning forward and lying in bed. He denies leg swelling, calf pain. He reports drinking a lot of water prior to and after surgery. OBJECTIVE: Vital Signs Period Temp Pulse Resp BP Sys/Giron Pulse Ox Last 24 Hr 98.5 F 59-63 17-18 124-142/69-89 93-100 HEART: S1S2, RRR LUNGS: Clear ABDOMEN: Obese, soft, non-tender, (+) distended, normal BS, incision clean, VIRI in place draining bloody fluid EXTREMITIES: No edema, no calf tenderness Laboratory Tests 11/19/18 11/19/18 11/19/18 06:46 06:46 06:46 WBC 11.2 H RBC 4.53 Hgb 13.4 Hct 39.3 MCV 86.7 MCH 29.6 MCHC 34.1 RDW 13.2 Plt Count 240 D MPV 7.4 L Absolute Neuts (auto) 8.6 H Neutrophils % 77.1 D Lymphocytes % 11.8 D Monocytes % 9.6 Eosinophils % 1.3 Basophils % 0.2 Nucleated RBC % 0 PT with INR 12.80 INR 1.08 Sodium 121 L Potassium 3.7 Chloride 77 L Carbon Dioxide 33 H Anion Gap 10 BUN 12 Creatinine 0.7 Creat Clearance w eGFR > 60 Random Glucose 113 H Serum Osmolality Calcium 8.3 L Magnesium 1.6 L Total Bilirubin 0.7 AST 25 ALT 25 Alkaline Phosphatase 69 Creatine Kinase 216 Creatine Kinase Index 2.2 CK-MB (CK-2) 4.9 H Troponin I 0.03 B-Natriuretic Peptide 419.0 H Total Protein 5.9 L Albumin 3.3 L Urine Color Urine Appearance Urine pH Ur Specific [place] Urine Protein Urine Glucose (UA) Urine Ketones Urine Blood Urine Nitrite Urine Bilirubin Urine Urobilinogen Ur Leukocyte Esterase Urine WBC (Auto) Urine RBC (Auto) Urine Osmolality Ur Random Sodium Urine Creatinine 11/19/18 11/19/18 11/19/18 09:15 09:15 14:10 WBC RBC Hgb Hct MCV MCH MCHC RDW Plt Count MPV Absolute Neuts (auto) Neutrophils % Lymphocytes % Monocytes % Eosinophils % Basophils % Nucleated RBC % PT with INR INR Sodium Potassium Chloride Carbon Dioxide Anion Gap BUN Creatinine Creat Clearance w eGFR Random Glucose Serum Osmolality Calcium Magnesium Total Bilirubin AST ALT Alkaline Phosphatase Creatine Kinase Creatine Kinase Index CK-MB (CK-2) Troponin I B-Natriuretic Peptide Total Protein Albumin Urine Color Ltyellow Urine Appearance Clear Urine pH 7.0 Ur Specific [place] 1.049 H Urine Protein Negative Urine Glucose (UA) Negative Urine Ketones Trace H Urine Blood 3+ H Urine Nitrite Negative Urine Bilirubin Negative Urine Urobilinogen Negative Ur Leukocyte Esterase Trace Urine WBC (Auto) 4 Urine RBC (Auto) 440 Urine Osmolality 724 Ur Random Sodium 106 Urine Creatinine 66.0 H 11/19/18 14:20 WBC RBC Hgb Hct MCV MCH MCHC RDW Plt Count MPV Absolute Neuts (auto) Neutrophils % Lymphocytes % Monocytes % Eosinophils % Basophils % Nucleated RBC % PT with INR INR Sodium Potassium Chloride Carbon Dioxide Anion Gap BUN Creatinine Creat Clearance w eGFR Random Glucose Serum Osmolality Cancelled Calcium Magnesium Total Bilirubin AST ALT Alkaline Phosphatase Creatine Kinase Creatine Kinase Index CK-MB (CK-2) Troponin I B-Natriuretic Peptide Total Protein Albumin Urine Color Urine Appearance Urine pH Ur Specific [place] Urine Protein Urine Glucose (UA) Urine Ketones Urine Blood Urine Nitrite Urine Bilirubin Urine Urobilinogen Ur Leukocyte Esterase Urine WBC (Auto) Urine RBC (Auto) Urine Osmolality Ur Random Sodium Urine Creatinine Home Medications Medication Instructions Recorded Aspirin Coated [Ecotrin -] 162 mg PO DAILY 06/18/12 Losartan 50Mg/Hctz 12.5MG [Hyzaar 1 tab PO BID 06/18/12 -] Metoprolol Succinate [Toprol XL -] 50 mg PO BID 06/18/12 Ranolazine [Ranexa -] 500 mg PO BID #60 tab 08/01/15 Rosuvastatin [Crestor -] 20 mg PO HS #30 tablet 08/01/15 Clopidogrel Bisulfate [Plavix] 75 mg PO DAILY 11/15/18 Amlodipine Besylate [Norvasc -] 5 mg PO DAILY 11/16/18 ASSESSMENT AND PLAN: This is a 53 year old man with a history of HTN, CAD with stents, morbid obesity , lap band, repair of incarcerated complex ventral hernia 11/16 who presented to the ED with chest pressure and SOB. 1. Chest pain, SOB - Monitor on telemetry - Serial troponins - No evidence of PE - Echocardiogram 2. Hyponatremia - Hypotonic, euvolemic - Likely secondary to HCTZ, increased water intake -Hold HCTZ - Fluid restriction - Check AM cortisol, TSH 3. Hypomagnesemia - Mag sulfate IV given 4. Urinary retention, post-op - Maintain Strauss catheter - Will plan voiding trial 5. HTN - Continue Norvasc, Toprol XL - Hold Hyzaar secondary to hyponatremia 6. CAD, history of stents - Continue aspirin, Plavix, Toprol XL, Crestor, Ranexa 7. Incarcerated complex ventral hernia - s/p repair 11/16 8. Morbid obesity with BMI 43.8 - History of lap band
[2018-11-19 18:39] LABS: ANION GAP 8 MMOL/L (8-16); BLOOD UREA NITROGEN 11 mg/dL (7-18); CALCIUM 8.4 mg/dL (8.5-10.1); CHLORIDE 79 mmol/L (98-107); CO2 33 mmol/L (21-32); CREATININE 0.7 mg/dL (0.55-1.3); GLUCOSE,RANDOM 114 mg/dL (74-106); POTASSIUM 3.7 mmol/L (3.5-5.1); SODIUM 120 mmol/L (136-145)
[2018-11-19 18:46] LABS: OSMOLALITY,SERUM 252 mosm/kg (278-305)
[2018-11-19] MEDS ORDERED: HEPARIN NA (PORCINE) 5,000 UNITS/ML 1ML VIAL ONE (22:49)
[2018-11-19] MEDS: ROSUVASTATIN CA 20 MG TABLET (FP) PO SCH (22:53)
[2018-11-19] MEDS: HEPARIN NA (PORCINE) 5,000 UNITS/ML 1ML VIAL SQ SCH (22:53)
[2018-11-19] MEDS: RANOLAZINE E.R. 500 MG TABLET (FP) PO SCH (22:54)
[2018-11-19] MEDS: SENNOSIDES 8.6MG TABLET (FP) PO SCH (22:54)
[2018-11-20] MEDS ORDERED: ONDANSETRON 4 MG/2 ML VIAL IVPUSH ONE (01:01)
[2018-11-20] MEDS ORDERED: ONDANSETRON 4 MG/2 ML VIAL ONE (01:11)
[2018-11-20 06:48] LABS: ANION GAP 8 MMOL/L (8-16); BLOOD UREA NITROGEN 11 mg/dL (7-18); CALCIUM 8.1 mg/dL (8.5-10.1); CHLORIDE 82 mmol/L (98-107); CO2 33 mmol/L (21-32); CREATININE 0.6 mg/dL (0.55-1.3); GLUCOSE,RANDOM 105 mg/dL (74-106); MAGNESIUM 1.8 mg/dL (1.8-2.4); PHOSPHOROUS 3.3 mg/dL (2.5-4.9); POTASSIUM 3.4 mmol/L (3.5-5.1); SODIUM 123 mmol/L (136-145)
[2018-11-20] MEDS ORDERED: POTASSIUM CHLORIDE TABS 20 MEQ TABLET.ER (FP) PO ONE ×3 (09:45→15:20)
--- NOTE | 2018-11-20 09:47 | PN ---
Physical Exam: SUBJECTIVE: Patient seen and examined in bed side this morning. States he feels much better. Minimal pain at the surgical site. Denies chest pain, sob, cough, palpitation, abdominal pain, nausea or vomiting. VIRI drain in place. Pedraza in place. BM today, no blood. This morning his BP was 108/60 mmHg, so his morning dose of antiHTN was not given. OBJECTIVE: Vital Signs Period Temp Pulse Resp BP Sys/Giron Pulse Ox Last 24 Hr 97.8 F-98 F 58-66 16-20 103-128/62-89 97-100 GENERAL: Morbidly obese male, lying in bed comfortably, is awake, alert, and fully oriented, in no acute distress. HEAD: Normal with no signs of trauma. EYES: EOM intact, no pallor or icterus. ENT: Ears normal, moist mucous membranes. NECK: Supple. LUNGS: B/L Breath sounds equal, clear to auscultation bilaterally, no wheezes, no crackles, no accessory muscle use. HEART: Regular rate and rhythm, S1, S2 without murmur. ABDOMEN: Ecchymosis, dressing over the surgical site, VIRI drain in place, Soft, tender to palpation around the surgical site, BS +. EXTREMITIES: 2+ pulses, warm, well-perfused, no edema. NEUROLOGICAL: No facial droop. Normal speech, gait not observed. PSYCH: Normal mood, normal affect. SKIN: Warm, dry, normal turgor, no rashes or lesions noted Laboratory Results - last 24 hr 11/19/18 11/19/18 11/19/18 09:15 09:15 14:10 Sodium Potassium Chloride Carbon Dioxide Anion Gap BUN Creatinine Creat Clearance w eGFR Random Glucose Serum Osmolality Calcium Phosphorus Magnesium Troponin I TSH Urine Color Ltyellow Urine Appearance Clear Urine pH 7.0 Ur Specific [place] 1.049 H Urine Protein Negative Urine Glucose (UA) Negative Urine Ketones Trace H Urine Blood 3+ H Urine Nitrite Negative Urine Bilirubin Negative Urine Urobilinogen Negative Ur Leukocyte Esterase Trace Urine WBC (Auto) 4 Urine RBC (Auto) 440 Urine Osmolality 724 Ur Random Sodium 106 Urine Creatinine 66.0 H 11/19/18 11/19/18 11/20/18 14:20 17:39 05:08 Sodium 120 L 123 L Potassium 3.7 3.4 L Chloride 79 L 82 L Carbon Dioxide 33 H 33 H Anion Gap 8 8 BUN 11 11 Creatinine 0.7 0.6 Creat Clearance w eGFR > 60 > 60 Random Glucose 114 H 105 Serum Osmolality Cancelled 252 L Calcium 8.4 L 8.1 L Phosphorus 3.3 Magnesium 1.8 Troponin I < 0.02 TSH 0.91 D Urine Color Urine Appearance Urine pH Ur Specific [place] Urine Protein Urine Glucose (UA) Urine Ketones Urine Blood Urine Nitrite Urine Bilirubin Urine Urobilinogen Ur Leukocyte Esterase Urine WBC (Auto) Urine RBC (Auto) Urine Osmolality Ur Random Sodium Urine Creatinine Active Medications Generic Name Dose Route Start Last Admin Trade Name Freq PRN Reason Stop Dose Admin Amlodipine Besylate 5 mg 11/20/18 10:00 Norvasc - PO DAILY [facility] Aspirin 162 mg 11/20/18 10:00 Ecotrin - PO DAILY [facility] Clopidogrel Bisulfate 75 mg 11/20/18 10:00 Plavix - PO DAILY [facility] Docusate Sodium 100 mg 11/20/18 10:00 Colace - PO DAILY [facility] Heparin Sodium (Porcine) 5,000 unit 11/19/18 22:00 11/19/18 22:53 Heparin - SQ 5,000 unit BID [facility]IS Administration Metoprolol Succinate 50 mg 11/19/18 22:00 11/19/18 22:54 Toprol Xl - PO 50 mg BID LUIS Administration Ranolazine 500 mg 11/19/18 22:00 11/19/18 22:54 Ranexa - PO 500 mg BID [facility] Administration Rosuvastatin Calcium 20 mg 11/19/18 22:00 11/19/18 22:53 Crestor - PO 20 mg HS LUIS Administration Senna 1 tab 11/19/18 22:00 11/19/18 22:54 Senna - PO 1 tab HS LUIS Administration ASSESSMENT/PLAN: Patient is a 53 year old morbidly obese male with PMHx of HTN, CAD s/p stents, POD#4 of ventral hernia repair presents with dyspnea found to have hyponatermia # Symptomatic Hypovolemic Hyponatremia likely secondary to medication (HCTZ) and increased water intake On admission, Na 121, now improved to 123 On water restriction, discontinued HCTZ. Unlikely hypothyroidism, TSH is normal. Continue fluid restriction. Symptoms has resolved Will repeat BMP now and monitor Cortisol AM pending. # Urinary retention-Pedraza in place Urinary output around 3000ml in 24 hrs. He was sent home on pedraza and the plan was to remove in a week at his doctors office Will continue pedraza for now # Hypertension with an episode of hypotension Morning dose of Amlodipine 5 mg and Metoprolol was held. If it improves, continue it. Also on Ranolazine 500mg BID. Discontinue HCTZ # Ventral hernia s/p repair POD [address]- around 20 ml drainage-serosanguinous # CAD s/p stents Continue Aspirin 162 mg and PLavix # Constipation Had a bowel movement. Continue Colace and Senna # Hypokalemia Repleted with PO K-dur # Morbid obesity s/p lap Continue diet and exercise # FEN NOt on IV fluids, can tolerate PO Electrolytes repleted. Regular diet, fluids restriction 1 L # Prophylaxis For DVT: On Heparin 5000 IU sq BID For GI: Not indicated # Code Status: Full Code # Dispo: Admitted in Med-Surg. D/c planning in AM if hyponatremia resolves. Illness, Investigation and Plan of care explained to the patient. He verbalized understanding. Case discussed with Dr. Kulkarni. Visit type - Emergency Visit Emergency Visit: Yes ED Registration Date: 11/19/18 Care time: The patient presented to the Emergency Department on the above date and was hospitalized for further evaluation of their emergent condition. - New Patient This patient is new to me today: Yes Date on this admission: 11/20/18 - Critical Care Critical Care patient: No - Discharge Referral Referred to [facility] Med [facility].C[facility] No
[2018-11-20] MEDS ORDERED: CLOPIDOGREL BISULFATE 75 MG TABLET (FP) PO SCH (10:00)
[2018-11-20] MEDS: ASPIRIN COATED 81 MG TABLET.EC PO SCH (11:30)
[2018-11-20] MEDS: HEPARIN NA (PORCINE) 5,000 UNITS/ML 1ML VIAL SQ SCH ×2 (11:30→22:39)
[2018-11-20] MEDS: DOCUSATE SODIUM 100 MG CAPSULE (FP) PO SCH (11:30)
[2018-11-20] MEDS: RANOLAZINE E.R. 500 MG TABLET (FP) PO SCH ×2 (11:30→22:38)
[2018-11-20] MEDS: CLOPIDOGREL BISULFATE 75 MG TABLET (FP) PO SCH (11:30)
[2018-11-20] MEDS: amLODIPine BESYLATE 5 MG TABLET (FP) PO SCH (13:10)
[2018-11-20 15:53] VITALS: BMI 37.6
[2018-11-20 17:08] LABS: ANION GAP 8 MMOL/L (8-16); BLOOD UREA NITROGEN 9 mg/dL (7-18); CHLORIDE 83 mmol/L (98-107); CO2 35 mmol/L (21-32); CREATININE 0.7 mg/dL (0.55-1.3); GLUCOSE,RANDOM 126 mg/dL (74-106); POTASSIUM 3.5 mmol/L (3.5-5.1); SODIUM 127 mmol/L (136-145)
--- NOTE | 2018-11-20 18:38 | PN ---
Teaching Attending Note Name of Resident: Annalee Aranda ATTENDING PHYSICIAN STATEMENT I saw and evaluated the patient. I reviewed the resident's note and discussed the case with the resident. I agree with the resident's findings and plan as documented. SUBJECTIVE: Patient has no complaints. OBJECTIVE: Vital Signs Period Temp Pulse Resp BP Sys/Giron Pulse Ox Last 24 Hr 97.8 F-98.2 F 58-70 16-20 103-129/58-81 95-99 HEART: S1S2, RRR LUNGS: Clear ABDOMEN: Obese, soft, non-tender, non-distended, normal BS EXTREMITIES: No edema Laboratory Results - last 24 hr 11/19/18 11/20/18 11/20/18 17:39 05:08 15:03 Sodium 120 L 123 L 127 L Potassium 3.7 3.4 L 3.5 Chloride 79 L 82 L 83 L Carbon Dioxide 33 H 33 H 35 H Anion Gap 8 8 8 BUN 11 11 9 Creatinine 0.7 0.6 0.7 Creat Clearance w eGFR > 60 > 60 > 60 Random Glucose 114 H 105 126 H Serum Osmolality 252 L Calcium 8.4 L 8.1 L 8.0 L Phosphorus 3.3 Magnesium 1.8 Troponin I < 0.02 TSH 0.91 D Current Medications Generic Name Dose Route Start Last Admin Trade Name Freq PRN Reason Stop Dose Admin Amlodipine Besylate 5 mg 11/20/18 10:00 11/20/18 13:10 Norvasc - PO Not Given DAILY LUIS Aspirin 162 mg 11/20/18 10:00 11/20/18 11:30 Ecotrin - PO 162 mg DAILY LUIS Administration Clopidogrel Bisulfate 75 mg 11/20/18 10:00 11/20/18 11:30 Plavix - PO 75 mg DAILY LUIS Administration Docusate Sodium 100 mg 11/20/18 10:00 11/20/18 11:30 Colace - PO 100 mg DAILY LIUS Administration Heparin Sodium (Porcine) 5,000 unit 11/19/18 22:00 11/20/18 11:30 Heparin - SQ 5,000 unit BID LUIS Administration Metoprolol Succinate 50 mg 11/19/18 22:00 11/20/18 11:30 Toprol Xl - PO 50 mg BID LUIS Administration Ranolazine 500 mg 11/19/18 22:00 11/20/18 11:30 Ranexa - PO 500 mg BID LUIS Administration Rosuvastatin Calcium 20 mg 11/19/18 22:00 11/19/18 22:53 Crestor - PO 20 mg HS LUIS Administration Senna 1 tab 11/19/18 22:00 11/19/18 22:54 Senna - PO 1 tab HS LUIS Administration ASSESSMENT AND PLAN: This is a 53 year old man with a history of HTN, CAD with stents, morbid obesity , lap band, repair of incarcerated complex ventral hernia 11/16 who presented to the ED with chest pressure and SOB. 1. Chest pain, SOB - Troponin negative x 2 - No evidence of PE - Echocardiogram 2. Hyponatremia - Hypotonic, euvolemic - Likely secondary to HCTZ, increased water intake -Improving - Continue to hold HCTZ - Continue fluid restriction - TSH normal - AM cortisol pending 3. Hypomagnesemia - Improved 4. Urinary retention, post-op - Maintain Strauss catheter 5. HTN - Continue Norvasc, Toprol XL - Hold Hyzaar secondary to hyponatremia 6. CAD, history of stents - Continue aspirin, Plavix, Toprol XL, Crestor, Ranexa 7. Incarcerated complex ventral hernia - s/p repair 11/16 8. Morbid obesity - History of lap band
[2018-11-20] MEDS: SENNOSIDES 8.6MG TABLET (FP) PO SCH (22:39)
[2018-11-20] MEDS: ROSUVASTATIN CA 20 MG TABLET (FP) PO SCH (22:39)
[2018-11-20] MEDS ORDERED: ACETAMINOPHEN 325 MG TABLET (FP) PO ONE (23:02)
[2018-11-21 08:03] LABS: ANION GAP 5 MMOL/L (8-16); BLOOD UREA NITROGEN 7 mg/dL (7-18); CALCIUM 8.3 mg/dL (8.5-10.1); CHLORIDE 93 mmol/L (98-107); CO2 35 mmol/L (21-32); CREATININE 0.7 mg/dL (0.55-1.3); GLUCOSE,RANDOM 112 mg/dL (74-106); POTASSIUM 3.6 mmol/L (3.5-5.1); SODIUM 133 mmol/L (136-145)
[2018-11-21] MEDS: amLODIPine BESYLATE 5 MG TABLET (FP) PO SCH (11:21)
[2018-11-21] MEDS: CLOPIDOGREL BISULFATE 75 MG TABLET (FP) PO SCH (11:21)
[2018-11-21] MEDS: DOCUSATE SODIUM 100 MG CAPSULE (FP) PO SCH (11:21)
[2018-11-21] MEDS: ASPIRIN COATED 81 MG TABLET.EC PO SCH (11:23)
[2018-11-21] MEDS: HEPARIN NA (PORCINE) 5,000 UNITS/ML 1ML VIAL SQ SCH (11:23)
--- NOTE | 2018-11-21 14:15 | ECHO ---
Name: JACQUELINE OLMOS Exam:Adult Echocardiogram Study Date: 11/21/2018 10:01 AM Age: 53 yrs Reason For Study: SOB Height: 71 in Weight: 270 lb BSA: 2.4 m2 MMode/2D Measurements & Calculations IVSd: 0.87 cm EDV(Teich): 170.3 ml LVIDd: 5.9 cm ESV(Teich): 56.2 ml LVIDs: 3.6 cm LVPWd: 0.87 cm Doppler Measurements & Calculations Med Peak E' Christos: 8.1 cm/sec Lat Peak E' Christos: 8.0 cm/sec Procedure A complete two-dimensional transthoracic echocardiogram was performed (2D, M-mode, Doppler and color flow Doppler). The study was technically difficult with many images being suboptimal in quality. Left Ventricle The left ventricular size, thickness and function are normal. The transmitral spectral Doppler flow p attern is suggestive of impaired LV relaxation. The left ventricular wall motion is normal. Right Ventricle The right ventricle is normal in size and function. There is normal right ventricular wall thickness. Atria Normal left and right atrial size and function. Mitral Valve The mitral valve is normal in structure and function. There is trace mitral regurgitation. Tricuspid Valve The tricuspid valve is normal in structure and function. There is trace tricuspid regurgitation. Aortic Valve The aortic valve is normal in structure and function. No aortic regurgitation is present. Pulmonic Valve The pulmonic valve is normal in structure and function. Trace pulmonic valvular regurgitation. Great Vessels The aortic root is normal size. Pericardium/Pleura There is no pericardial effusion. Interpretation Summary The left ventricular size, thickness and function are normal The right ventricle is normal in size and function. The mitral valve is normal in structure and function. The aortic valve is normal in structure and function. Tavon Fischer 11/21/2018 02:14 PM
[2018-11-21] MEDS: RANOLAZINE E.R. 500 MG TABLET (FP) PO SCH (14:53)
[2018-11-21 16:02] VITALS: BP 132/78; PULSE 72; TEMP 98.3
--- NOTE | 2018-11-21 16:56 | DS ---
Physical Exam: SUBJECTIVE: Patient seen and examined OBJECTIVE: Vital Signs Period Temp Pulse Resp BP Sys/Giron Pulse Ox Last 24 Hr 97.1 F-98.3 F 60-77 18-20 116-132/69-78 99 PHYSICAL EXAM GENERAL: The patient is awake, alert, and fully oriented, in no acute distress. HEAD: Normal with no signs of trauma. EYES: PERRL, extraocular movements intact, sclera anicteric, conjunctiva clear. ENT: Ears normal, nares patent, oropharynx clear without exudates, moist mucous membranes. NECK: Trachea midline, full range of motion, supple. LUNGS: Breath sounds equal, clear to auscultation bilaterally, no wheezes, no crackles, no accessory muscle use. HEART: Regular rate and rhythm, S1, S2 without murmur, rub or gallop. ABDOMEN: Soft, nontender, nondistended, normoactive bowel sounds, no guarding, no rebound, no hepatosplenomegaly, no masses. EXTREMITIES: 2+ pulses, warm, well-perfused, no edema. NEUROLOGICAL: Cranial nerves II through XII grossly intact. Normal speech, gait not observed. PSYCH: Normal mood, normal affect. SKIN: Warm, dry, normal turgor, no rashes or lesions noted. LABS Laboratory Results - last 24 hr 11/20/18 11/20/18 11/21/18 05:08 15:03 06:25 Sodium 127 L 133 L Potassium 3.5 3.6 Chloride 83 L 93 L Carbon Dioxide 35 H 35 H Anion Gap 8 5 L BUN 9 7 Creatinine 0.7 0.7 Creat Clearance w eGFR > 60 > 60 Random Glucose 126 H 112 H Calcium 8.0 L 8.3 L Cortisol AM Sample 8.9 HOSPITAL COURSE: Date of Admission:11/19/18 Date of Discharge: 11/21/18 Discharge Summary Reason For Visit: HYPONATREMIA, CHEST PAIN Current Active Problems Chest pain (Acute) Exertional dyspnea (Acute) Hypomagnesemia (Acute) Hyponatremia with decreased serum osmolality (Acute) CAD (coronary artery disease) (Chronic) Hypertension (Chronic) Obesity (BMI 30-39.9) (Chronic) Condition: Improved - Instructions Diet, Activity, Other Instructions: You were admitted to [facility] on Nov 19 after you came to the ER because of chest pain and shortness of breath. You were found to have a low sodium level (121) on your blood work. This was thought to be from increased water intake and medication (HCTZ). The medication was discontinued and you were placed on a fluid intake restriction of 1 liter per day. With this treatment, your sodium level improved to 133 on Nov 21. You are being discharged home on Nov 21. Please stop taking Hyzaar (losartan/ hydrochlorothiazide) and start taking Cozaar (losartan) 50 mg daily. A prescription has been sent to [facility]. You may resume a regular diet and activity as was advised by surgery. Please follow up with Dr. Hernandez as scheduled, and with Dr. Tanner and Dr. Stein in 1 week. Please return to the ER if you develop chest pain, shortness of breath, palpitations, fatigue, weakness. Referrals: Rm Stein MD [Staff Physician] - 1 Week Matt Tanner MD [Primary Care Provider] - 1 Week Disposition: HOME - Home Medications Comprehensive Discharge Medication List: Ambulatory Orders Aspirin Coated [Ecotrin -] 162 mg PO DAILY 06/18/12 Metoprolol Succinate [Toprol XL -] 50 mg PO BID 06/18/12 Ranolazine [Ranexa -] 500 mg PO BID #60 tab 08/01/15 Rosuvastatin [Crestor -] 20 mg PO HS #30 tablet 08/01/15 Clopidogrel Bisulfate [Plavix] 75 mg PO DAILY 11/15/18 Amlodipine Besylate [Norvasc -] 5 mg PO DAILY 11/16/18 Losartan Potassium [Cozaar -] 50 mg PO DAILY #30 tablet 11/21/18 - Discharge Referral Referred to [facility] No
== END 2018-11-21 19:32 | disposition home or self-care (01) | DRG 641 ==
LOC: JER 05:59 → JERBED 12:23 → J4W 11-20 15:46
PROVIDERS: ADMIT Internal Medicine; ATTEND Internal Medicine
DX: E87.1 Hypo-osmolality and hyponatremia (principal); I10 Essential (primary) hypertension; K59.00 Constipation, unspecified; R33.9 Retention of urine, unspecified; E83.42 Hypomagnesemia; Z68.37 Body mass index [BMI] 37.0-37.9, adult; E78.5 Hyperlipidemia, unspecified; I25.10 Atherosclerotic heart disease of native coronary artery without angina pectoris; Z98.61 Coronary angioplasty status; R07.9 Chest pain, unspecified; R06.02 Shortness of breath; E66.01 Morbid (severe) obesity due to excess calories; E87.6 Hypokalemia
CPT/HCPCS: 36415; 71046-TC-FY; 71275-TC; 74019-TC-FY; 80048; 80053; 81003; 81015; 82533; 82550; 82553; 82570; 83735; 83880; 83930; 83935; 84100; 84300; 84443; 84484; 85025; 85610; 87086; 93005; 93010; 93306-TC; 99285-25; J1644

== ENCOUNTER 2023-01-18 09:46 | Observation (INO) | payer BC, OTHER ==
[2023-01-18 10:00] VITALS: BMI 33.9
[2023-01-18 11:56] LABS: EOS % 4.4 % (0-4.5); HEMOGLOBIN 14.6 GM/dL (11.7-16.9); LYMPH % 16.1 % (8-40); MCH 29.2 pg (25.7-33.7); MONO % 8.2 % (3.8-10.2); NEUT % 70.3 % (42.8-82.8); PLATELET COUNT 292 10^3/uL (134-434); RBC 5.01 M/mm3 (4.00-5.60); RDW 13.7 % (11.9-15.9); WHITE BLOOD COUNT 7.9 K/mm3 (4.0-10.0)
[2023-01-18 12:14] LABS: CHLORIDE 104 mmol/L (98-107); SODIUM 137 mmol/L (136-145)
[2023-01-18 12:17] LABS: ANION GAP 3 MMOL/L (8-16); CALCIUM 9.1 mg/dL (8.5-10.1); CO2 30 mmol/L (21-32); GLUCOSE,RANDOM 100 mg/dL (74-106)
[2023-01-18 12:18] LABS: ALBUMIN 3.5 g/dl (3.4-5.0)
[2023-01-18 12:20] LABS: CREATININE 0.9 mg/dL (0.55-1.3); SGOT/AST 23 U/L (15-37); SGPT/ALT 32 U/L (13-61)
[2023-01-18 12:22] LABS: BILIRUBIN,TOTAL 0.2 mg/dL (0.2-1); TOT PROT 6.5 g/dl (6.4-8.2)
[2023-01-18 12:23] LABS: ALK PHOS 84 U/L (45-117)
[2023-01-18] MEDS ORDERED: ASPIRIN 81 MG CHEWABLE TABLETS PO ONE (12:54)
[2023-01-18] MEDS ORDERED: ASPIRIN 81 MG CHEWABLE TABLETS ONE (13:05)
[2023-01-18] MEDS ORDERED: ENOXAPARIN NA (PORCINE) 100 MG/1 ML DISP.SYRIN SQ ONE (15:44)
[2023-01-18] MEDS: ENOXAPARIN NA (PORCINE) 100 MG/1 ML DISP.SYRIN SQ SCH (17:25)
[2023-01-18] MEDS ORDERED: ROSUVASTATIN CA 20 MG TABLET PO SCH (22:00)
[2023-01-18] MEDS ORDERED: RANOLAZINE E.R. 500 MG TABLET (FP) ONE (22:12)
[2023-01-18] MEDS ORDERED: ROSUVASTATIN CA 20 MG TABLET ONE (22:12)
[2023-01-18] MEDS: RANOLAZINE E.R. 500 MG TABLET (FP) PO SCH (22:14)
[2023-01-18] MEDS ORDERED: amLODIPine BESYLATE 5 MG TABLET (FP) PO ONE (23:07)
[2023-01-18] MEDS ORDERED: amLODIPine BESYLATE 5 MG TABLET (FP) ONE (23:11)
[2023-01-19] MEDS: ENOXAPARIN NA (PORCINE) 100 MG/1 ML DISP.SYRIN SQ SCH (05:01)
[2023-01-19 06:34] LABS: BASO % 0.8 % (0-2.0); EOS % 5.1 % (0-4.5); HEMATOCRIT 39.4 % (35.4-49); HEMOGLOBIN 13.9 GM/dL (11.7-16.9); LYMPH % 18.2 % (8-40); MCH 30.1 pg (25.7-33.7); MCHC 35.4 g/dl (32.0-35.9); MEAN CELL VOLUME 85.1 fl (80-96); MEAN PLT VOLUME 6.9 fl (7.5-11.1); MONO % 7.7 % (3.8-10.2); NEUT % 68.2 % (42.8-82.8); PLATELET COUNT 231 10^3/uL (134-434); RBC 4.63 M/mm3 (4.00-5.60); RDW 13.6 % (11.9-15.9); WHITE BLOOD COUNT 7.2 K/mm3 (4.0-10.0)
[2023-01-19 06:54] LABS: CALCIUM 8.5 mg/dL (8.5-10.1)
[2023-01-19 06:55] LABS: BLOOD UREA NITROGEN 13.1 mg/dL (7-18)
[2023-01-19] MEDS ORDERED: amLODIPine BESYLATE 5 MG TABLET (FP) ONE (07:41)
[2023-01-19] MEDS ORDERED: ENOXAPARIN NA (PORCINE) 100 MG/1 ML DISP.SYRIN SQ ONE (07:42)
[2023-01-19] MEDS ORDERED: TAMSULOSIN HCL 0.4 MG CAP ONE (07:42)
[2023-01-19] MEDS ORDERED: CLOPIDOGREL BISULFATE 75 MG TABLET (FP) ONE (07:42)
[2023-01-19] MEDS ORDERED: ASPIRIN 325 MG ENTERIC COATED TABLET (FP) ONE (07:42)
[2023-01-19] MEDS: TAMSULOSIN HCL 0.4 MG CAP PO SCH (08:30)
[2023-01-19] MEDS: ASPIRIN COATED 81 MG TABLET.EC PO SCH (09:45)
[2023-01-19] MEDS: CLOPIDOGREL BISULFATE 75 MG TABLET (FP) PO SCH (09:45)
[2023-01-19] MEDS: amLODIPine BESYLATE 5 MG TABLET (FP) PO SCH (09:45)
[2023-01-19] MEDS ORDERED: ASPIRIN COATED 81 MG TABLET.EC ONE (09:49)
[2023-01-19] MEDS ORDERED: RANOLAZINE E.R. 500 MG TABLET (FP) ONE (10:08)
[2023-01-19] MEDS: RANOLAZINE E.R. 500 MG TABLET (FP) PO SCH ×2 (10:08→21:39)
[2023-01-19] MEDS ORDERED: ROSUVASTATIN CA 20 MG TABLET PO SCH (10:33)
[2023-01-20 04:12] VITALS: RESP 18
[2023-01-20 08:03] LABS: BASO % 0.6 % (0-2.0); HEMATOCRIT 40.3 % (35.4-49); LYMPH % 14.1 % (8-40); MCH 29.5 pg (25.7-33.7); MCHC 34.8 g/dl (32.0-35.9); MEAN PLT VOLUME 7.3 fl (7.5-11.1); MONO % 6.9 % (3.8-10.2); NEUT % 74.4 % (42.8-82.8); PLATELET COUNT 245 10^3/uL (134-434); RBC 4.74 M/mm3 (4.00-5.60); RDW 13.4 % (11.9-15.9); WHITE BLOOD COUNT 7.2 K/mm3 (4.0-10.0)
[2023-01-20 08:21] LABS: ALBUMIN 3.3 g/dl (3.4-5.0)
[2023-01-20 08:22] LABS: CALCIUM 8.5 mg/dL (8.5-10.1)
[2023-01-20 08:23] LABS: BLOOD UREA NITROGEN 11.1 mg/dL (7-18)
[2023-01-20 08:25] LABS: CREATININE 0.9 mg/dL (0.55-1.3)
[2023-01-20 08:27] LABS: BILIRUBIN,TOTAL 0.4 mg/dL (0.2-1)
[2023-01-20] MEDS: amLODIPine BESYLATE 5 MG TABLET (FP) PO SCH (09:00)
[2023-01-20] MEDS ORDERED: REGADENOSON 0.4 MG/5 ML PRE-FILLED SYRINGE IVPUSH ONE ×2 (09:08→09:30)
[2023-01-20] MEDS ORDERED: ENOXAPARIN NA (PORCINE) 40 MG/0.4 ML DISP.SYRIN SQ SCH (10:00)
[2023-01-20] MEDS: RANOLAZINE E.R. 500 MG TABLET (FP) PO SCH (10:43)
[2023-01-20] MEDS: TAMSULOSIN HCL 0.4 MG CAP PO SCH (10:43)
[2023-01-20] MEDS: ASPIRIN COATED 81 MG TABLET.EC PO SCH (10:43)
[2023-01-20] MEDS: CLOPIDOGREL BISULFATE 75 MG TABLET (FP) PO SCH (10:43)
[2023-01-20 15:01] VITALS: BP 153/95; PULSE 95; TEMP 98.3
== END 2023-01-20 17:02 | disposition home or self-care (01) ==
LOC: JERFT 09:46 → JERBED 12:51 → J4W 01-19 11:26
PROVIDERS: ADMIT Internal Medicine
PROC: 3E033GC Introduction of Other Therapeutic Substance into Peripheral Vein, Percutaneous Approach (ICD-10-PCS; principal; 2023-01-18)
PROC: 3E013GC Introduction of Other Therapeutic Substance into Subcutaneous Tissue, Percutaneous Approach (ICD-10-PCS; 2023-01-18)
DX: I20.8 Other forms of angina pectoris (principal); R07.89 Other chest pain; R74.8 Abnormal levels of other serum enzymes; I10 Essential (primary) hypertension; I25.10 Atherosclerotic heart disease of native coronary artery without angina pectoris; I25.2 Old myocardial infarction; N40.1 Benign prostatic hyperplasia with lower urinary tract symptoms; I73.9 Peripheral vascular disease, unspecified; E66.01 Morbid (severe) obesity due to excess calories; Z68.33 Body mass index [BMI] 33.0-33.9, adult; Z95.5 Presence of coronary angioplasty implant and graft; Z87.891 Personal history of nicotine dependence; Z87.09 Personal history of other diseases of the respiratory system
CPT/HCPCS: 0241U-QW; 36415; 71046-TC-FY; 78452-TC; 80048; 80053; 83735; 84484; 85025; 93005; 93010; 93017; 93306-TC; 96372; 96374; 99291; A9502; G0378; J2785

== ENCOUNTER 2023-02-22 09:26 | Emergency (ER) | payer OTHER ==
[2023-02-22 09:31] VITALS: BMI 34.8
[2023-02-22 12:15] LABS: BASO % 0.6 % (0-2.0); EOS % 3.6 % (0-4.5); HEMATOCRIT 41.4 % (35.4-49); HEMOGLOBIN 14.5 GM/dL (11.7-16.9); LYMPH % 14.9 % (8-40); MCH 29.6 pg (25.7-33.7); MEAN CELL VOLUME 84.7 fl (80-96); MEAN PLT VOLUME 7.4 fl (7.5-11.1); MONO % 9.5 % (3.8-10.2); NEUT % 71.4 % (42.8-82.8); PLATELET COUNT 209 10^3/uL (134-434); RBC 4.89 M/mm3 (4.00-5.60); RDW 13.8 % (11.9-15.9); WHITE BLOOD COUNT 5.1 K/mm3 (4.0-10.0)
[2023-02-22 12:26] LABS: BLOOD UREA NITROGEN 11.7 mg/dL (7-18); CALCIUM 8.8 mg/dL (8.5-10.1)
[2023-02-22 12:29] LABS: CREATININE 0.8 mg/dL (0.55-1.3)
[2023-02-22 12:59] LABS: THROAT:GRP A STREP NOT DETECTED (NOTDETECTED)
[2023-02-22 13:04] LABS: SARS COV-2 MOLECULAR IN-HOUSE NEGATIVE (NEGATIVE)
[2023-02-22] MEDS ORDERED: DEXAMETHASONE SOD PHOSPHATE 10 MG/1 ML VIAL IVPUSH ONE (16:04)
[2023-02-22] MEDS ORDERED: DEXAMETHASONE SOD PHOSPHATE 10 MG/1 ML VIAL ONE (16:19)
[2023-02-22 16:34] VITALS: BP 170/102; PULSE 53; RESP 20; TEMP 97.2
== END 2023-02-22 16:50 | disposition home or self-care (01) ==
LOC: JER 09:26
PROC: 3E033GC Introduction of Other Therapeutic Substance into Peripheral Vein, Percutaneous Approach (ICD-10-PCS; principal; 2023-02-22)
DX: K12.2 Cellulitis and abscess of mouth (principal); Z20.822 Contact with and (suspected) exposure to COVID-19
CPT/HCPCS: 36415; 70491-TC; 80048; 85025; 87651; 99285-25; C9803-CS; J1100; Q9967; U0003; U0005